=== PATIENT | male | born 1990 | race African-American/Black ===

== ENCOUNTER 2017-07-31 20:31 | Emergency (ER) | payer SELFPAY ==
[~2017-07-31] VITALS: Ht 190.5 cm; Wt 80.0 kg
[~2017-07-31 20:31] MED LIST: LORTA5 PO; ZOFR4TAB3 SL
[2017-07-31 20:42] VITALS: BP 193/88; PULSE 85; RESP 18; TEMP 97.9; O2SAT 98
[2017-07-31] MEDS ORDERED: ONDANSETRON HCL 4 MG/2 ML VIAL IV PUSH ONE (21:30)
[2017-07-31] MEDS ORDERED: SODIUM CHLOR 0.9% 1000 ML INJ 1,000 ML IV ONE ×3 (21:30→23:30)
[2017-07-31] MEDS ORDERED: MORPHINE SULFATE 4 MG/ML INJ IV PUSH ONE (21:30)
[2017-07-31 21:34] LABS: AUTOMATED NEUTROPHIL # 10.7 TH/MM3 (1.8-7.7); BASOPHIL # 0.1 TH/MM3 (0-0.2); BASOPHIL % 0.8 % (0.0-2.0); EOSINOPHIL # 0.5 TH/MM3 (0-0.4); EOSINOPHIL % 3.4 % (0.0-4.0); HEMATOCRIT 30.2 % (39.0-51.0); HEMOGLOBIN 10.1 GM/DL (13.0-17.0); LYMPH % 16.2 % (9.0-44.0); LYMPHOCYTE # 2.4 TH/MM3 (1.0-4.8); MEAN CELL VOLUME 67.4 FL (80.0-100.0); MEAN CORPUSCULAR HEMOGLOBIN 22.6 PG (27.0-34.0); MEAN CORPUSCULAR HGB CONC 33.5 % (32.0-36.0); MEAN PLATELET VOLUME 8.7 FL (7.0-11.0); MONO % 7.8 % (0.0-8.0); MONOCYTE # 1.2 TH/MM3 (0-0.9); NEUT % 71.8 % (16.0-70.0); PLATELET COUNT 292 TH/MM3 (150-450); RED BLOOD COUNT 4.48 MIL/MM3 (4.50-5.90); RED CELL DISTRIBUTION WIDTH 21.8 % (11.6-17.2); RETIC # 325.2 MIL/L (20.0-150.0); RETIC % 7.3 % (0.4-3.0); WHITE BLOOD COUNT 14.9 TH/MM3 (4.0-11.0)
--- NOTE | 2017-07-31 21:42 | PD ---
HPI Chief Complaint: Sickle Cell Time Seen by Provider: 21:28 Travel History International Travel<30 days: No Contact w/Intl Traveler<30days: No Traveled to known affect area: No History of Present Illness HPI Patient is a 2 day history of generalized body aches which is consistent with his sickle cell flareups. No known drug allergy Past medical history significant for pneumonia in 2006 and 2007, cholecystectomy , sickle cell disease, kidney stones, PFSH Past Medical History Asthma: No Autoimmune Disease: No Blood Disorders: No Anxiety: No Depression: No Heart Rhythm Problems: No Cancer: No Cardiovascular Problems: No Chest Pain: No Cystic Fibrosis: No Diminished Hearing: No Endocrine: No Gastrointestinal Disorders: Yes Genitourinary: Yes (dark COLOR) Headaches: No Hypertension: No Immune Disorder: No Implanted Vascular Access Dvce: No Kidney Stones: Yes Musculoskeletal: No Neurologic: No Psychiatric: No Reproductive: No Respiratory: Yes (HX OF PNEUMONIA 02/23; PNEUMONIA 04/2007) Seizures: No Sickle Cell Disease: Yes Sleep Apnea: No Tetanus Vaccination: Unknown Influenza Vaccination: No Past Surgical History Abdominal Surgery: No Cardiac Surgery: No Cholecystectomy: Yes Ear Surgery: No Endocrine Surgery: No Eye Surgery: No Genitourinary Surgery: No Gynecologic Surgery: No Neurologic Surgery: No Oral Surgery: No Pacemaker: No Thoracic Surgery: No Other Surgery: No Social History Alcohol Use: No Tobacco Use: No Substance Use: No Allergies-Medications (Allergen,Severity, Reaction): Coded Allergies: No Known Allergies (Unverified Adverse Reaction, Unknown, 07/31/17) Reported Meds & Prescriptions Reported Meds & Active Scripts Active Zofran Odt (Ondansetron Odt) 4 Mg Tab 4 Mg SL Q8HR PRN [place] (Hydrocodone-Acetaminophen) 7.5-325 mg Tab 1 Tab PO Q6H PRN Review of Systems General / Constitutional: No: Fever Eyes: No: Visual changes HENT: No: Headaches Cardiovascular: No: Chest Pain or Discomfort Respiratory: No: Shortness of Breath Gastrointestinal: No: Abdominal Pain Genitourinary: No: Dysuria Musculoskeletal: Positive: Arthralgias Skin: No Rash Neurologic: No: Weakness Psychiatric: No: Depression Endocrine: No: Polydipsia Hematologic/Lymphatic: No: Easy Bruising Physical Exam Narrative GENERAL: SKIN: Warm and dry. HEAD: Atraumatic. Normocephalic. EYES: Pupils equal and round. No scleral icterus. No injection or drainage. ENT: No nasal bleeding or discharge. Mucous membranes pink and moist. NECK: Trachea midline. No JVD. CARDIOVASCULAR: Regular rate and rhythm. RESPIRATORY: No accessory muscle use. Clear to auscultation. Breath sounds equal bilaterally. GASTROINTESTINAL: Abdomen soft, non-tender, nondistended. MUSCULOSKELETAL: Extremities without clubbing, cyanosis, or edema. No obvious deformities. NEUROLOGICAL: Awake and alert. No obvious cranial nerve deficits. Motor grossly within normal limits. Five out of 5 muscle strength in the arms and legs. Normal speech. PSYCHIATRIC: Appropriate mood and affect; insight and judgment normal. Data Data Last Documented VS Vital Signs Date Time Temp Pulse Resp B/P (MAP) Pulse Ox O2 Delivery O2 Flow Rate FiO2 08/01/17 00:27 86 16 143/61 (88) 97 Room Air 07/31/17 23:01 2.00 07/31/17 20:42 97.9 Orders Orders Complete Blood Count With Diff (07/31/17 21:05) Basic Metabolic Panel (Bmp) (07/31/17 21:05) Retic Count (07/31/17 21:05) Ldh Serum (07/31/17 21:30) Chest, Single Ap (07/31/17 21:30) Iv Access Insert/Monitor (07/31/17 21:30) Ecg Monitoring (07/31/17 21:30) Oxygen Administration (07/31/17 21:30) Oximetry (07/31/17 21:30) Sodium Chlor 0.9% 1000 Ml Inj (Ns 1000 M (07/31/17 21:30) Sodium Chlor 0.9% 1000 Ml Inj (Ns 1000 M (07/31/17 21:30) Ondansetron Inj (Zofran Inj) (07/31/17 21:30) Morphine Inj (Morphine Inj) (07/31/17 21:30) Ketorolac Inj (Toradol Inj) (07/31/17 22:30) Sodium Chlor 0.9% 1000 Ml Inj (Ns 1000 M (07/31/17 23:30) Ketorolac Inj (Toradol Inj) (07/31/17 23:30) Labs Laboratory Tests Test 07/31/17 21:00 White Blood Count 14.9 TH/MM3 Red Blood Count 4.48 MIL/MM3 Hemoglobin 10.1 GM/DL Hematocrit 30.2 % Mean Corpuscular Volume 67.4 FL Mean Corpuscular Hemoglobin 22.6 PG Mean Corpuscular Hemoglobin Concent 33.5 % Red Cell Distribution Width 21.8 % Platelet Count 292 TH/MM3 Mean Platelet Volume 8.7 FL Neutrophils (%) (Auto) 71.8 % Lymphocytes (%) (Auto) 16.2 % Monocytes (%) (Auto) 7.8 % Eosinophils (%) (Auto) 3.4 % Basophils (%) (Auto) 0.8 % Neutrophils # (Auto) 10.7 TH/MM3 Lymphocytes # (Auto) 2.4 TH/MM3 Monocytes # (Auto) 1.2 TH/MM3 Eosinophils # (Auto) 0.5 TH/MM3 Basophils # (Auto) 0.1 TH/MM3 CBC Comment AUTO DIFF Differential Total Cells Counted 100 Neutrophils % (Manual) 76 % Band Neutrophils % 1 % Lymphocytes % 15 % Monocytes % 6 % Basophils % 2 % Neutrophils # (Manual) 11.5 TH/MM3 Nucleated Red Blood Cells 12 /100 WBC Differential Comment FINAL DIFF MANUAL Platelet Estimate NORMAL Platelet Morphology Comment NORMAL Basophilic Stippling FAINT Sickle Cells 2+ Target Cells 1+ Ovalocytes 2+ [place] Bodies PRESENT Reticulocyte Count 7.3 % Absolute Reticulocyte Count 325.2 MIL/L Blood Urea Nitrogen 10 MG/DL Creatinine 0.95 MG/DL Random Glucose 111 MG/DL Calcium Level 8.3 MG/DL Sodium Level 135 MEQ/L Potassium Level 4.5 MEQ/L Chloride Level 106 MEQ/L Carbon Dioxide Level 23.5 MEQ/L Anion Gap 6 MEQ/L Estimat Glomerular Filtration Rate 114 ML/MIN Lactate Dehydrogenase 679 U/L [facility] Medical Decision Making Medical Screen Exam Complete: Yes Emergency Medical Condition: Yes Medical Record Reviewed: Yes Differential Diagnosis Pneumonia versus chest syndrome versus sickle cell vaso-occlusive pain v rule out aplastic anemia Narrative Course CBC shows 15,000 WBC, H&H 10/30, MCV 67 consistent with microcytic anemia, patient's absolute reticulocyte count as well as a reticulocyte count elevated which is appropriate for this patient who is a electrolytes are all within normal limits, normal kidney functions, LDH is elevated at 679 which is within expected for a patient with active sickle cell Physician Communication Physician Communication Case was discussed with hospitalist Dr. Dumas, who did not recommend admission at this time. This was all discussed with the patient as well as mother. Diagnosis Primary Impression: Vaso-occlusive crisis status post resolving Patient Instructions: Sickle Cell Crisis (ED) Scripts Ondansetron Odt (Zofran Odt) 4 Mg Tab 4 MG SL Q8HR Y for Nausea/Vomiting, #15 TAB 0 Refills Prov: Dewayne Cee MD 08/01/17 Hydrocodone-Acetaminophen ([place]) 7.5-325 mg Tab 1 TAB PO Q6H Y for PAIN, #10 TAB 0 Refills Prov: Dewayne Cee MD 08/01/17 Disposition: 01 DISCHARGE HOME Condition: Stable Dewayne Cee MD Jul 31, 2017 21:42
[2017-07-31 21:49] LABS: BICARBONATE 23.5 MEQ/L (21.0-32.0); CALCIUM 8.3 MG/DL (8.5-10.1); CREATININE 0.95 MG/DL (0.60-1.30)
[2017-07-31 22:03] VITALS: BP 157/82; PULSE 94; RESP 18; O2SAT 97
--- NOTE | 2017-07-31 22:21 | RADRPT ---
EXAM DATE/TIME: 07/31/2017 21:56 [facility] COMPARISON: CHEST SINGLE AP, June 25, 2015, 13:35. INDICATIONS : Sickle cell crisis. Shortness of breath. MEDICAL HISTORY : Sickle Cell disease. Smoker. SURGICAL HISTORY : None. ENCOUNTER: Initial ACUITY: 2 days PAIN SCORE: 10/10 LOCATION: Bilateral chest FINDINGS: A single view of the chest demonstrates the lungs to be symmetrically aerated without evidence of mas s, infiltrate or effusion. The cardiomediastinal contours are unremarkable. Osseous structures are intact. CONCLUSION: No evidence of acute cardiopulmonary disease. Andrea Saini MD on July 31, 2017 at 22:19 Board Certified Radiologist. This report was verified electronically.
[2017-07-31] MEDS ORDERED: KETOROLAC TROMETHAMINE 30 MG/ML (IVP) VIAL IV PUSH ONE ×2 (22:30→23:30)
[2017-07-31 22:37] VITALS: BP 154/71; PULSE 85; RESP 14; O2SAT 94
[2017-07-31 23:01] VITALS: BP 143/63; PULSE 99; RESP 18; O2SAT 100
[2017-07-31 23:07] LABS: BANDS 1 % (0-6); BASOPHILS 2 % (0-2); CORRECTED NUCLEATED RBC 12 /100 WBC (0-0); LYMPHOCYTES 15 % (9-44); MONOCYTES 6 % (0-8); NEUTROPHIL # MANUAL DIFF 11.5 TH/MM3 (1.8-7.7); NUCLEATED RED BLOOD CELL 12 (0-0); POLYS (SEG NEUTROPHILS) 76 % (16-70)
[2017-07-31 23:09] LABS: TARGET CELLS 1+ (NORMAL)
[2017-07-31 23:10] LABS: OVALOCYTES 2+ (NORMAL); SICKLE CELLS 2+ (NORMAL)
[2017-07-31 23:16] LABS: HOWELL-JOLLY BODIES PRESENT (NONE SEEN)
[2017-08-01] MEDS ORDERED: ZOFR4TAB3 SL (00:11)
[2017-08-01] MEDS ORDERED: HYDR-3288 PO (00:11)
[2017-08-01 00:27] VITALS: BP 143/61; PULSE 86; RESP 16; O2SAT 97
[2017-08-01 01:28] VITALS: BP 131/68; PULSE 98; RESP 16; O2SAT 97
== END 2017-08-01 01:33 | disposition home or self-care (01) ==
LOC: NEPD 20:31
DX: D57.00 Hb-SS disease with crisis, unspecified (principal)
CPT/HCPCS: 71045; 80048; 83615; 85007; 85027; 85044; 96361; 96374; 96375; 96376; 99284; J1885; J2270; J2405; J7030